=== PATIENT | female | born 1965 | race African-American/Black ===

== ENCOUNTER → 2025-01-25 | Outpatient (CLI) | payer MEDICAID, SELFPAY ==
--- NOTE | 2025-01-25 15:45 | XR_ITS ---
Examination: Lumbar spine 3 views TECHNIQUE: AP lateral coned lateral lower lumbar spine 3 views Exam date and time: January 25, 2025 1555 hours INDICATIONS: Low back pain this month. FINDINGS: Lumbar dextroscoliosis 10 degrees Grade 1 anterolisthesis L5 on S1 No lumbar fracture Mild to moderate diffuse lumbar degenerative disc disease most prominent at L5-S1 IMPRESSION: Mild to moderate diffuse lumbar degenerative disc disease most prominent at L5-S1
== END | disposition home or self-care (01) ==
PROVIDERS: PCP Obstetrics & Gynecology; Referring Provider Obstetrics & Gynecology; Visit Provider Obstetrics & Gynecology
DX: M51.371 Other intervertebral disc degeneration, lumbosacral region with lower extremity pain only (principal)
CPT/HCPCS: 72100

== ENCOUNTER → 2025-05-18 | Outpatient (CLI) | payer MEDICAID, SELFPAY ==
--- NOTE | 2025-05-18 15:45 | XR_ITS ---
Examination: MRI lumbar spine without contrast Date and time of exam: May 18, 2025, 1644 hours INDICATIONS: Low back pain 5 years radiating into the legs with numbness in the feet leg instability Technique: Multiple MRI axial and sagittal sections lumbar spine. Sagittal T2-weighted images, TR 3500, TE 118 T1 weighted transverse sections, TR 688 T8.5, T2-weighted sagittal sections T1 weighted sagittal sections TR 621, TE 30 T2 axial sections, TR 4, 190, TE 84. Findings: Grade 1 anterolisthesis L5 on S1 No lumbar fracture. Normal marrow signal lumbar vertebral bodies. Diffuse lumbar disc desiccation. L5-S1 6 mm central, 10 mm right foraminal disc bulge producing moderate right L5 ganglionic compression, 4 mm left foraminal disc bulge producing mild left L5 ganglionic compression L4-L5 no disc protrusion L3-L4 no disc protrusion L2-L3 no disc protrusion L1-L2 no disc protrusion IMPRESSION: L5-S1 6 mm central, 10 mm right foraminal disc bulge producing moderate right L5 ganglionic compression, also 4 mm left foraminal disc bulge producing mild left L5 ganglionic compression
== END | disposition home or self-care (01) ==
PROVIDERS: PCP Obstetrics & Gynecology; Referring Provider Obstetrics & Gynecology; Visit Provider Obstetrics & Gynecology
DX: G95.20 Unspecified cord compression (principal); M51.360 Other intervertebral disc degeneration, lumbar region with discogenic back pain only
CPT/HCPCS: 72148